=== PATIENT | female | born 1965 | race Caucasian/White ===

== ENCOUNTER 2018-08-04 17:16 | Emergency (ER) | payer MEDICAID ==
[2018-08-04 17:16] VITALS: BMI 35.7
[2018-08-04 17:51] VITALS: BP 156/82; PULSE 60; RESP 18; TEMP 98.2; O2SAT 100
[2018-08-04] MEDS ORDERED: Oxycodone/Acetaminophen 5/325 mg Tab PO STA (18:05)
--- NOTE | 2018-08-04 18:15 | ED PDOC ---
Lower Extremity Pain/Injury Time Seen by Provider: 08/04/18 18:00 Chief Complaint (Nursing): Lower Extremity Problem/Injury Chief Complaint (Provider): Lower Extremity Problem History Per: Patient History/Exam Limitations: no limitations Onset/Duration Of Symptoms: Days (1x month) Current Symptoms Are (Timing): Still Present Severity: Moderate Additional Complaint(s): 52 year old female with no pertinent past medical history presents to the ED for an evaluation of right knee pain ongoing for 1x month. Patient also reports swelling to the area which has worsened. Patient denies having any falls. Patient was seen by her PMD who prescribed her tramadol which she says has not really helped. Patient states that she is currently on eliquis and cannot take any antiinflammatories. PMD: Gary Dobbs MD Past Medical History Reviewed: Historical Data, Nursing Documentation, Vital Signs Vital Signs: Last Vital Signs Temp 98.2 F 08/04/18 17:49 Pulse 60 08/04/18 17:49 Resp 18 08/04/18 17:49 BP 156/82 H 08/04/18 17:49 Pulse Ox 100 08/04/18 17:49 BROOKE Report Viewed: Yes - Medical History PMH: Anemia, Diabetes, HTN, Hypercholesterolemia, Pulmonary Embolism (ON ELOQUIS) Denies: Chronic Kidney Disease - Family History Family History: States: No Known Family Hx - Social History Current smoker - smoking cessation education provided: No Alcohol: None Drugs: Denies - Immunization History Hx Tetanus Toxoid Vaccination: No Hx Influenza Vaccination: No Hx Pneumococcal Vaccination: No - Home Medications Home Medications: Ambulatory Orders Medication Instructions Recorded metFORMIN [glucOPHAGE] 500 mg PO BID 02/07/16 Enalapril Maleate [Vasotec] 5 mg PO DAILY 12/14/16 Apixaban [Eliquis] 5 mg PO BID #60 tablet 02/19/18 oxyCODONE/Acetaminophen [Percocet 1 ea PO Q8 PRN #5 tab 08/04/18 5/325 mg Tab] - Allergies Allergies/Adverse Reactions: Allergies Allergy/AdvReac Type Severity Reaction Status Date / Time No Known Allergies Allergy Verified 05/10/18 16:20 Review of Systems ROS Statement: Except As Marked, All Systems Reviewed And Found Negative Musculoskeletal: Positive for: Other (right knee pain and swelling) Physical Exam - Reviewed Nursing Documentation Reviewed: Yes Vital Signs Reviewed: Yes - Physical Exam Appears: Positive for: Well, Non-toxic, No Acute Distress Head Exam: Positive for: ATRAUMATIC, NORMOCEPHALIC Skin: Positive for: Normal Color, Warm, Dry Extremity: Positive for: Tenderness (mild tenderness of right knee), Other (moderate effusion noted to rigt knee.) Neurologic/Psych: Positive for: Alert, Oriented (3x) - ECG O2 Sat by Pulse Oximetry: 100 (RA) Pulse Ox Interpretation: Normal - Progress ED Course And Treament: KNEE RIGHT: NO INJURY NOTED PERCOCET 5/325 MG X 1 DOSE PLACED IN KNEE IMMOBILIZER Medical Decision Making Medical Decision Makin:00 Initial impression: 52 year old female with right knee pain. Initial plan: * Xray knee right 3 views * percocet 5/325 mg tab 1 tab po * reevaluation Scribe Attestation: Documented Catrina Hidalgo, acting as a scribe for Brianda Jackson PA-C. Provider Scribe Attestation: All medical record entries made by the Scribe were at my direction and personally dictated by me. I have reviewed the chart and agree that the record accurately reflects my personal performance of the history, physical exam, medical decision making, and the department course for this patient. I have also personally directed, reviewed, and agree with the discharge instructions and disposition. Disposition - Clinical Impression Clinical Impression: Knee effusion, right - Patient ED Disposition Is Patient to be Admitted: No - Disposition Disposition: Routine/Home Disposition Time: 18:37 Condition: FAIR Prescriptions: oxyCODONE/Acetaminophen [Percocet 5/325 mg Tab] 1 ea PO Q8 PRN #5 tab PRN Reason: Pain, Severe (8-10) Instructions: Knee Pain Print Language: CUBAN
[2018-08-04] MEDS ORDERED: Oxycodone/Acetaminophen 5/325 mg Tab ONE (18:36)
--- NOTE | 2018-08-05 12:53 | RAD ---
Date of service: 08/04/2018 PROCEDURE: Right Knee Radiographs. HISTORY: routine COMPARISON: None. FINDINGS: BONES: Normal. No fracture. JOINTS: Normal. No osteoarthritis. JOINT EFFUSION: None. OTHER FINDINGS: None. IMPRESSION: Normal radiographs of the right knee.
== END 2018-08-04 19:10 | disposition home or self-care (01) ==
LOC: H.ER 17:16
DX: M25.461 Effusion, right knee (principal); E11.9 Type 2 diabetes mellitus without complications; E78.00 Pure hypercholesterolemia, unspecified; I10 Essential (primary) hypertension; Z79.01 Long term (current) use of anticoagulants; Z79.84 Long term (current) use of oral hypoglycemic drugs; Z86.711 Personal history of pulmonary embolism